=== PATIENT | male | born 1955 | race Caucasian/White ===

== ENCOUNTER 2022-11-29 00:31 | Day surgery (SDC) | payer OTHER, SELFPAY ==
[2022-11-19 12:17] VITALS: BMI 32.8
[2022-11-29 08:19] VITALS: BP 147/82; PULSE 66; RESP 18; TEMP 36.5; O2SAT 98
[2022-11-29] MEDS: LACTATED RINGERS 1,000 ML 150 ML IV CONT (08:32)
--- NOTE | 2022-11-29 08:40 | P.HP_ITS ---
History of Present Illness History of Present Illness Consent: Risks, benefits, and alternatives have been discussed and questions answered. Patient agrees to proceed with procedure. Chief complaint: family hx colon ca Narrative: Omero Engle is a 67 year old male Presents today for screening colonoscopy. Patient has current weight appetite bowel movements are normal. Patient denies abdominal pain. He has had no bleeding. Family history is significant his sister had colon cancer his brother had colon polyps. Patient presents today for neoplasia screening colonoscopy. [facility] Past Medical History Medical History History of blood clots Family History Family History Mother Family history of primary malignant neoplasm of liver Father Family history of heart disease in male family member before age 55 Other Family history of seizure disorder Social History Social History Smoking status: Never smoker Second hand tobacco smoke exposure: No Alcohol intake: never Substance use: unknown Substance use type: does not use Lack of Transportation: No Lack of Food: Never True Current Housing: I Have Housing Concerned About Future Housing: No Difficulty Paying Gas/Electric Bills: No Difficulty Paying for Meds: No Currently Unemployed: No Education: High School Diploma/GED Difficulty w/ Childcare or Family Care: No Living arrangements: with family Spiritual care concerns: No Meds Home Medications and Allergies Home Medications Medication Instructions Recorded Confirmed Type levothyroxine 50 mcg tablet 50 mcg PO DAILY #90 tabs 07/01/22 11/19/22 Rx Allergies Allergy/AdvReac Type Severity Reaction Status Date / Time No Known Allergies Allergy Verified 11/29/22 08:18 Vital Signs Vital Signs - 24 hr 11/29/22 08:19 Temperature 97.7 F Pulse Rate 66 Respiratory Rate 18 Blood Pressure 147/82 H Pulse Oximetry 98 Oxygen Delivery Room Air Exam Narrative: Physical exam reveals patient to be alert. Vital signs stable. HEENT exam is unremarkable. Patient is anicteric. Lungs are clear to auscultation and percussion. Heart is without murmur or extra sounds. Abdomen bowel sounds are present soft nontender with no organomegaly. Digital external rectal exam is normal. Assessment and Plan Assessment and plan (1) Family hx of colon cancer: Code(s): Z80.0 - Family history of malignant neoplasm of digestive organs Status: Acute Assessment and Plan: Patient has family history of colon cancer in his sister and colon polyps in brother. Plan for surveillance colonoscopy at 5 year intervals. Further recommendations may be given after endoscopy.
--- NOTE | 2022-11-29 09:39 | P.PNAN_ITS ---
Anes - Initial Pre Proc Eval Procedure: Operation Date: 11/29/22 09:30 Proposed Procedures p Colonoscopy - Jacek Orr MD Date/Time: 11/29/22 09:39 Surgeon: Jacek Orr MD Pre Op Diagnosis: family hx colon ca Patient Data Age: 67 Gender: M Height: 1.73 m Weight: 100 kg Last Vital Signs Temp 97.7 F 11/29/22 08:19 Pulse 66 11/29/22 08:19 Resp 18 11/29/22 08:19 BP 147/82 H 11/29/22 08:19 Pulse Ox 98 11/29/22 08:19 O2 Del Method Room Air 11/29/22 08:19 Allergies Allergy/AdvReac Type Severity Reaction Status Date / Time No Known Allergies Allergy Verified 11/29/22 08:18 Home Medications Medication Instructions Recorded Confirmed Type levothyroxine 50 mcg tablet 50 mcg PO DAILY #90 tabs 07/01/22 11/19/22 Rx Patient hx anesthesia problems: none Family hx anesthesia problems: none Results Review: All pre-operative results and documents have been reviewed as part of the pre- operative evaluation. [facility] Past Medical History Medical History History of blood clots Family History Family History Mother Family history of primary malignant neoplasm of liver Father Family history of heart disease in male family member before age 55 Other Family history of seizure disorder Social History Social History Smoking status: Never smoker Second hand tobacco smoke exposure: No Alcohol intake: never Substance use: unknown Substance use type: does not use Lack of Transportation: No Lack of Food: Never True Current Housing: I Have Housing Concerned About Future Housing: No Difficulty Paying Gas/Electric Bills: No Difficulty Paying for Meds: No Currently Unemployed: No Education: High School Diploma/GED Difficulty w/ Childcare or Family Care: No Living arrangements: with family Spiritual care concerns: No Anes - Eval Final PreProcedure Day of Procedure 11/29/22 09:39 Patient weight: obese Heart: regular rate and rhythm Lungs: clear to auscultation Airway: Mallampati scale class II Neurological: alert and oriented Last oral intake: >/= 8 hours ASA classification: III Emergent: no Anesthetic plan: proceed Anesthesia type and monitoring: general GIVS and standard monitoring Results Review: All pre-operative results and documents have been reviewed as part of the pre- operative evaluation. Informed Consent: The patient's anesthetic plan and its attendant risks and benefits were discussed with the patient/family/POA. Questions were solicited and answers provided to the satisfaction of the patient/family/POA.
[2022-11-29 10:17] VITALS: BP 119/75; PULSE 65; RESP 19; O2SAT 96
[2022-11-29 10:27] VITALS: BP 126/86; PULSE 66; RESP 17; O2SAT 97
[2022-11-29 10:37] VITALS: BP 142/88; PULSE 65; RESP 16; O2SAT 100
== END 2022-11-29 10:53 | disposition home or self-care (01) ==
PROVIDERS: PCP Physician Assistant; Visit Provider Internal Medicine Gastroenterology
PROC: 0DJD8ZZ Inspection of Lower Intestinal Tract, Via Natural or Artificial Opening Endoscopic (ICD-10-PCS; CPT 45378; principal; 2022-11-29 09:30)
DX: Z12.11 Encounter for screening for malignant neoplasm of colon (principal); K62.1 Rectal polyp; K64.8 Other hemorrhoids; K64.4 Residual hemorrhoidal skin tags; Z80.0 Family history of malignant neoplasm of digestive organs; E66.9 Obesity, unspecified; Z68.33 Body mass index [BMI] 33.0-33.9, adult
CPT/HCPCS: 45380; 88305; J2704; J7120

== ENCOUNTER 2022-12-07 19:00 | Emergency (ER) | payer OTHER, SELFPAY ==
[2022-12-07 19:03] VITALS: BP 177/83; PULSE 76; RESP 18; O2SAT 98
--- NOTE | 2022-12-07 20:31 | ED.GENADULT ---
[facility] - General Adult General Chief complaint: Neck Pain/Injury Stated complaint: Neck/Shoulder Tighness Time Seen by Provider: 12/07/22 19:46 Source: patient Mode of arrival: ambulatory Limitations: no limitations History of Present Illness HPI narrative: This is a 67-year-old male who presents to the ED with chief complaint of left-sided neck pain ongoing for the past 3 days. Patient describes it as a crick in his neck. He states he just woke up and it was hurting 1 morning. He does do manual labor for work and feels like this is worsening his pain. Denies any injuries. Denies numbness, weakness, radicular symptoms. States pain is sharp and primarily in the left side of the neck with occasional radiation into the right side of the neck. Denies any recent infections, fevers, chills, nausea, vomiting, headache, wounds. States it is specifically worse with leftward rotation of the neck. Related Data Allergies Allergy/AdvReac Type Severity Reaction Status Date / Time No Known Allergies Allergy Verified 12/07/22 19:07 Review of Systems Review of Systems: All systems as dictated in [facility] Past Medical History Medical History History of blood clots Family History Family History Mother Family history of primary malignant neoplasm of liver Father Family history of heart disease in male family member before age 55 Other Family history of seizure disorder Social History Social History Smoking status: Never smoker Second hand tobacco smoke exposure: No Alcohol intake: never Substance use: unknown Substance use type: does not use Lack of Transportation: No Lack of Food: Never True Current Housing: I Have Housing Concerned About Future Housing: No Difficulty Paying Gas/Electric Bills: No Difficulty Paying for Meds: No Currently Unemployed: No Education: High School Diploma/GED Difficulty w/ Childcare or Family Care: No Living arrangements: with family Spiritual care concerns: No Exam Narrative: GENERAL: Well-appearing, well-nourished, and in no acute distress. HEAD: Normocephalic, atraumatic. EYES: PERRLA and EOMI. ENT: Nares clear, no rhinorrhea or epistaxis. Mucous membranes moist. Oropharynx without tonsillar hypertrophy exudate or other lesions. NECK: Supple. No adenopathy or masses. CHEST: No respiratory distress. Clear to auscultation. No wheezes rales or rhonchi HEART: Regular rate and rhythm. No murmur heard. Normal peripheral pulses. ABDOMEN: Soft, nontender, nondistended, normal active bowel sounds. MSK: No CT LS midline spine tenderness. No deformities or step-offs. No bruising. Range of motion of the C-spine limited with leftward rotation with extension due to pain. Significant tenderness to the left trapezius muscle distribution. No skin changes. SKIN: Warm, dry, no rash. NEURO: Alert and oriented x3. No focal deficits. 5 out of 5 strength and sensation in the upper and lower extremities. Ambulatory. PSYCH: Normal mood and affect. Course Course Emergency Course: Patient declines a CT scan today. Vital Signs Vital signs: Vital Signs Pulse Rate 76 12/07/22 19:03 Respiratory Rate 18 12/07/22 19:03 Blood Pressure 177/83 H 12/07/22 19:03 Pulse Oximetry 98 12/07/22 19:03 Oxygen Delivery Room Air 12/07/22 19:03 Pulse Rate 75 12/07/22 20:57 Respiratory Rate 18 12/07/22 19:03 Blood Pressure 146/87 H 12/07/22 20:57 Pulse Oximetry 99 12/07/22 20:57 Oxygen Delivery Room Air 12/07/22 19:03 Medical Decision Making MDM Narrative Medical decision making narrative: This is a presents to the ED with chief complaint of left-sided neck pain for the past 3 days. No injuries. No red flag symptoms neck or back pain. Vitals are normal. Exam reveals
[2022-12-07] MEDS: KETOROLAC 30 MG/ML VIAL (*BKC) IM (20:49)
[2022-12-07 20:57] VITALS: BP 146/87; PULSE 75; O2SAT 99
== END 2022-12-07 20:58 | disposition home or self-care (01) ==
PROVIDERS: Emergency Provider Physician Assistant; PCP Physician Assistant
DX: S16.1XXA Strain of muscle, fascia and tendon at neck level, initial encounter (principal); X58.XXXA Exposure to other specified factors, initial encounter
CPT/HCPCS: 96372; 99283; J1885

== ENCOUNTER 2022-12-09 10:57 | Emergency (ER) | payer OTHER, SELFPAY ==
--- NOTE | ~2022-12-09 | CT_ITS ---
Noncontrast CT scan of the cervical spine Technique: Multiple contiguous axial [address] images of the cervical spine were obtained and rec onstructed in 2D sagittal and coronal planes on the acquisition scanner. Dose reduction technique was used on this scan by utilizing automated exposure control, adjustment of the mA and/or kV according to patient size. The dose-length product (DLP) was 352.34 mGy-cm. Clinical History: Pain Findings: No fracture identified. There is straightening of the normal cervical lordosis. There is 3 mm retrolisthesis of C5 over C6. There is moderate degenerative disc narrowing at C5-C6 and C6-C7. Th ere is left facet arthropathy at C3-C4, with possible minimal left neural foraminal narrowing. There is left facet arthropathy at C4-C5, with left neural foraminal narrowing. There is bilateral neural f oraminal narrowing at C5-C6, with disc osteophyte complex present. There is bilateral neural foramina l narrowing at C6-C7, with disc osteophyte complex present. No prevertebral soft tissue swelling. Impression: No fracture. 3 mm retrolisthesis of C5 over C6. Degenerative spondylosis, especially at C5-C6 and C6-C7, as detailed above. Reviewed, dictated and finalized at location . Impression: No fracture. 3 mm retrolisthesis of C5 over C6. Degenerative spondylosis, especially at C5-C6 and C6-C7, as detailed above.
[2022-12-09 11:16] VITALS: BP 159/97; PULSE 71; RESP 20; TEMP 36.9; O2SAT 96
--- NOTE | 2022-12-09 13:18 | ED.NECK ---
HPI - Neck Pain/Injury General Chief Complaint: Neck Pain/Injury Stated Complaint: states primary wants a CT for neck pain/stiffness Time Seen by Provider: 12/09/22 12:10 History of Present Illness HPI Narrative: Patient is a 67-year-old male presenting with 4 to 5 days of neck pain. Patient states that it started with spasms in his shoulders that went into his neck. He has had severe midline neck pain for the last 2 days. States that he was seen here 2 days ago and declined a CT scan. States that he was given a shot and muscle relaxers which have not helped. He called his PCPs office today who advised that he come back in for evaluation. He denies numbness or weakness, fevers or chills. No other systemic symptoms. Related Data Allergies Allergy/AdvReac Type Severity Reaction Status Date / Time No Known Allergies Allergy Verified 12/11/22 08:00 Review of Systems Review of Systems: All systems reviewed & are unremarkable except as noted in HPI and below PMFSH Past Medical History Medical History (Reviewed 12/11/22 @ 07:59 by Joanne Stovall [facility]) History of blood clots Family History Family History Mother Family history of primary malignant neoplasm of liver Father Family history of heart disease in male family member before age 55 Other Family history of seizure disorder Social History Social History Smoking status: Never smoker Second hand tobacco smoke exposure: No Alcohol intake: never Substance use: unknown Substance use type: does not use Lack of Transportation: No Lack of Food: Never True Current Housing: I Have Housing Concerned About Future Housing: No Difficulty Paying Gas/Electric Bills: No Difficulty Paying for Meds: No Currently Unemployed: No Education: High School Diploma/GED Difficulty w/ Childcare or Family Care: No Living arrangements: with family Spiritual care concerns: No Exam Narrative: GENERAL: Well-appearing, well-nourished, and in no acute distress. HEAD: Normocephalic, atraumatic. EYES: PERRLA and EOMI. ENT: Nares clear, no rhinorrhea or epistaxis. NECK: Supple. mild midline tenderness extending into bilateral trapezius muscles CHEST: No respiratory distress. HEART: Regular rate and rhythm ABDOMEN: Nondistended EXTREMITIES: Normal range of motion. No edema. SKIN: Warm, dry, no rash. NEURO: No focal deficits. Alert and oriented x3. 5/5 all extremities, no sensory deficits PSYCH: Normal mood and affect. Course Vital Signs Vital signs: Vital Signs Oxygen Delivery Room Air 12/09/22 11:10 Temperature 98.4 F 12/09/22 11:16 Pulse Rate 60 12/09/22 16:28 Respiratory Rate 18 12/09/22 16:28 Blood Pressure 163/88 H 12/09/22 16:28 Pulse Oximetry 100 12/09/22 16:28 Oxygen Delivery Room Air 12/09/22 11:10 MDM - Neck Pain/Injury MDM Narrative Medical decision making narrative: Patient is a 67-year-old male presenting with several days of neck pain. Vitals are stable. Exam remarkable for the above. Will obtain CT spine, give a dose of Percocet and Robaxin. CT C spine shows degenerative changes but no acute abnormalities. No evidence of nerve impingement. On reevaluation, the patient states that the Percocet temporarily helped his pain but then it returned. Discussed the imaging with the patient and advised that he follow-up closely with orthopedics. States that he follows regularly with an orthopedic surgeon and he will give him a call. We will give a dose of Decadron for any possible radicular pain component. We will send in for a very short course of oxycodone for severe breakthrough pain. Advised that he also follow-up closely with his PCP. Appropriate return precautions given. Patient voiced understanding and is agreeable with plan. Discharged in stable condition. Differential Diagnosis Dif
--- NOTE | 2022-12-09 13:22 | PC.NURSE ---
pt taken to CT at this time
--- NOTE | 2022-12-09 13:30 | PC.NURSE ---
pt returned to room [address] at this time
[2022-12-09] MEDS: oxyCODONE/ACETAMINOPHEN (*CRX) 5-325 MG TABLET 1 TABLET PO (13:34)
[2022-12-09] MEDS: methocarbamoL 500 MG TABLET PO (13:34)
[2022-12-09 16:28] VITALS: BP 163/88; PULSE 60; RESP 18; O2SAT 100
== END 2022-12-09 16:20 | disposition home or self-care (01) ==
PROVIDERS: Emergency Provider Emergency Medicine; PCP Physician Assistant
DX: M47.812 Spondylosis without myelopathy or radiculopathy, cervical region (principal)
CPT/HCPCS: 72125; 96372; 99284; A9270; J1100

== ENCOUNTER → 2023-01-07 08:21 | Outpatient (CLI) | payer OTHER, SELFPAY ==
--- NOTE | ~2023-01-07 | MR_ITS ---
EXAMINATION: MR cervical spine wo con DATE: 01/07/2023 09:08 INDICATION: Neck pain. TECHNIQUE: Magnetic resonance imaging (MRI) of the cervical spine was performed without intravenous c ontrast. COMPARISON: Cervical spine CT 12/09/2022 FINDINGS: There is 7 degrees dextrocurvature of cervical spine. There is 2 mm retrolisthesis of C5 on C6 and C6 on C7. Vertebral body heights are normal. There is severely decreased disc height at C5-C6 and C6-C7. The spinal cord signal intensity is normal. The following disc levels are specifically di scussed: C2-C3: The disc does not extend beyond the endplate margin. There is mild bilateral uncovertebral ginny nt osteoarthritis. There is moderate right and severe left facet joint osteoarthritis. There is no ne ural foraminal stenosis. There is no central canal stenosis. C3-C4: There is a central protrusion. There is mild right and moderate left uncovertebral joint osteo arthritis. There is moderate right and severe left facet joint osteoarthritis. There is mild bilatera l neural foraminal stenosis. There is mild central canal stenosis. C4-C5: There is a central protrusion. There is moderate bilateral uncovertebral joint osteoarthritis. There is moderate right and severe left facet joint osteoarthritis. There is mild bilateral neural f oraminal stenosis. There is mild central canal stenosis. C5-C6: The disc is bulging. There is severe bilateral uncovertebral joint osteoarthritis. There is mo derate right and mild left facet joint osteoarthritis. There is severe right and moderate left neural foraminal stenosis. There is mild central canal stenosis with ventral indentation of the spinal cord . C6-C7: The disc is bulging. There is severe bilateral uncovertebral joint osteoarthritis. There is se teto bilateral facet joint osteoarthritis. There is moderate bilateral neural foraminal stenosis. The re is mild central canal stenosis. C7-T1: There is a central extrusion. There is mild bilateral uncovertebral joint osteoarthritis. Ther e is severe bilateral facet joint osteoarthritis. There is mild bilateral neural foraminal stenosis. There is no central canal stenosis. IMPRESSION: 1. Severe cervical spondylosis. Reviewed, dictated and finalized at location A.
== END ==
PROVIDERS: PCP Physician Assistant; Visit Provider Physician Assistant
DX: M47.892 Other spondylosis, cervical region (principal)
CPT/HCPCS: 72141